=== PATIENT | male | born 1960 | race Caucasian/White ===

== ENCOUNTER → 2016-11-16 | Outpatient (CLI) | payer BC ==
[~2016-11-16] MED LIST: CIPR-255 PO; FISHOIL PO; GLUC10007 PO
== END | disposition home or self-care (01) ==
LOC: C.LAB 16:19
PROVIDERS: ATTEND Urology
DX: N39.0 Urinary tract infection, site not specified (principal)

== ENCOUNTER → 2017-08-31 | Outpatient (CLI) | payer BC ==
[2017-09-05 10:26] LABS: ANA SCREEN TC 249X NEGATIVE (NEGATIVE); ANTI-SS-A <1.0 NEG AI (<1.0 NEG); ANTI-SS-B <1.0 NEG AI (<1.0 NEG); ANTICARDIOLIPID AB IGA <11 APL (< = 11); COMPLEMENT C4** TC 44982E 34 MG/DL (15-53); MICROSOMAL AB <1 IU/ML (<9)
== END | disposition home or self-care (01) ==
LOC: C.LAB1850 14:25
PROVIDERS: ATTEND Internal Medicine Infectious Disease
DX: M13.0 Polyarthritis, unspecified (principal)